=== PATIENT | male | born 1980 | race American Indian/Alaskan Native ===

== ENCOUNTER 2020-05-11 08:24 | Emergency (ER) | payer SELFPAY ==
[2020-05-11] MEDS ORDERED: MORPHINE 4 MG/1 ML INJ IV ONE (08:56)
[2020-05-11] MEDS ORDERED: ONDANSETRON 4 MG/2 ML INJ IV ONE (08:56)
[2020-05-11] MEDS ORDERED: SODIUM CHLORIDE 0.9% 1000 ML 1,000 ML IV ONE (08:56)
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
[2020-05-11] MEDS ORDERED: VANCOMYCIN 1,250 MG in SODIUM CHLORIDE 0.9% 500 ML 500 ML IV ONE (09:25)
[2020-05-11] MEDS ORDERED: VANCOMYCIN 1,250 MG in SODIUM CHLORIDE 0.9% 250ML 250 ML IV ONE (09:45)
--- NOTE | 2020-05-11 10:22 | XRay Report ---
CHEST 1 VIEW 05/11/2020 9:13 AM INDICATION / CLINICAL INFORMATION: left foream pain swelling. COMPARISON: None available. FINDINGS: SUPPORT DEVICES: None. HEART / MEDIASTINUM: No significant abnormality. LUNGS / PLEURA: No significant pulmonary or pleural abnormality. No pneumothorax. ADDITIONAL FINDINGS: There is posttraumatic deformity of the left humeral diaphysis related to remote , healed fracture. Several metallic fragments are seen adjacent to the fracture. IMPRESSION: 1. No acute findings. LEFT FOREARM 2 VIEWS INDICATION: left foream pain swelling. COMPARISON: No relevant prior imaging study available. FINDINGS: No significant skeletal abnormality. There is soft tissue swelling along the ulnar aspect of the forearm. No definite soft tissue gas or r adiodense foreign bodies. IMPRESSION: 1. Ulnar sided soft tissue swelling could be seen in the setting of cellulitis but is nonspecific. Signer Name: Krish Ugalde MD Signed: 05/11/2020 10:18 AM Workstation Name: [id number]
[2020-05-11 10:25] LABS: Alanine Aminotransferase 18 units/L (7-56); Albumin 3.5 g/dL (3.9-5); BUN/Creatinine Ratio 20; Blood Urea Nitrogen 16 mg/dL (9-20); Calcium 8.9 mg/dL (8.4-10.2); Hemolysis Index 97
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
[2020-05-11 11:33] LABS: Hematocrit 44.7 % (35.5-45.6); Hemoglobin 15.1 gm/dl (11.8-15.2); Mean Corpuscular HGB Conc 34 % (32-34); Mean Corpuscular Volume 92 fl (84-94); Platelet Count 185 K/mm3 (140-440); Red Blood Count 4.85 M/mm3 (3.65-5.03); Red Cell Distribution Width 13.1 % (13.2-15.2)
--- NOTE | 2020-05-11 11:35 | Cat Scan Report ---
CT ABDOMEN AND PELVIS WITH IV CONTRAST INDICATION: Diffuse abdominal pain COMPARISON: None available. TECHNIQUE: Axial CT images were obtained through the abdomen and pelvis after 100 mL IV contrast. All CT scans a t this location are performed using CT dose reduction for ALARA by means of automated exposure contro l. FINDINGS -- ABDOMEN: Lung Bases: No acute abnormality. Liver: Normal. Gallbladder: Normal. Bile Ducts: Normal. Pancreas: Normal. Spleen: Normal. Adrenals: Normal. Right Kidney and Proximal Ureter: Normal. Left Kidney and Proximal Ureter: Normal. Stomach and Bowel: Normal. Lymph Nodes: No significant adenopathy. Aorta: No significant abnormality. IVC: Normal. Additional Findings: None. FINDINGS -- PELVIS: Urinary Bladder and Distal Ureters: Normal. Reproductive Organs: No acute abnormality. Appendix: Poorly identified and cannot be assessed. Appendiceal pathology cannot be excluded as the a ppendix is not visualized and there is a paucity of fat within the mesentery to detect inflammation.. Bowel: No acute abnormality. Free Fluid: None. Lymph Nodes: No significant adenopathy. Additional Findings: None. Skeletal System: No acute abnormality. IMPRESSION: Nonspecific bowel gas pattern with mild gaseous distention of the colon which could represent mild ad ynamic ileus. No evidence of high-grade small bowel obstruction. Signer Name: Ok Muro MD Signed: 05/11/2020 11:30 AM Workstation Name: [id number]
[2020-05-11 11:48] LABS: INR 1.19 (0.87-1.13)
[2020-05-11 11:50] VITALS: BP 114/82
[2020-05-11] MEDS ORDERED: traMADol 50 MG TAB PO ONE (11:58)
== END 2020-05-11 13:11 | disposition home or self-care (01) ==
LOC: EDBD 08:24 → ED 08:24
DX: L03.114 Cellulitis of left upper limb (principal); R10.9 Unspecified abdominal pain; Z91.19 Patient's noncompliance with other medical treatment and regimen; Z86.19 Personal history of other infectious and parasitic diseases; Z79.899 Other long term (current) drug therapy
CPT/HCPCS: 36415; 71045; 73090; 73201; 74177; 80053; 82140; 82550; 83690; 83735; 85027; 85610; 87040; 93005; 96361; 96365; 96368; 96375; 99285; J0690; J2270; J2405; J3370; J7030; J7050; Q9967